=== PATIENT | male | born 1950 | race Two or more races ===

== ENCOUNTER 2019-05-02 11:56 | Emergency (ER) | payer MEDICARE, OTHER ==
[~2019-05-02] VITALS: Ht 172.7 cm; Wt 97.5 kg
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
[2019-05-02 12:12] VITALS: BP 174/76
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
[2019-05-02] MEDS ORDERED: Acetaminophen 500mg (ES) tab ORAL ONE (14:15)
[2019-05-02] MEDS ORDERED: Methocarbamol 750mg tab ORAL ONE (14:15)
[2019-05-02] MEDS ORDERED: LIDODERM700 M1 TOPIC (14:16)
[2019-05-02] MEDS ORDERED: TYLENOL EXTRA500 MG ORAL (14:16)
[2019-05-02] MEDS ORDERED: ROBAXIN-750750 MG PO (14:16)
[2019-05-02 15:10] VITALS: BP 156/90
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
--- NOTE | 2019-05-03 08:53 | Diagnostic Imaging Report ---
Indications: Headache Technique: Spiral acquisitions obtained through the brain. Angled axial and coronal 5 x 5 mm slices were reconstructed. Total dose length product 1344 mGycm. CTDI vol(s) 70 mGy. Dose reduction achieved using automated exposure control Comparison: None. Findings: There is right cerebellar volume loss, most likely related to encephalomalacia from prior infarct. Normal size ventricles and extra axial CSF spaces for age. No acute intracranial hemorrhage or edema, mass effect, nor midline shift. Normal urbano-white differentiation. Intact calvarium. Impression: Old right cerebellar infarct Negative for acute intracranial bleed or mass effect This agrees with the preliminary interpretation provided overnight by [facility] teleradiology service. The CT scanner at [facility] is accredited by the [employer] and the scans are performed using protocols designed to limit radiation exposure to as low as reasonably achievable to attain images of sufficient resolution adequate for diagnostic evaluation.
--- NOTE | 2019-05-03 08:58 | Diagnostic Imaging Report ---
Indication: Neck pain Technique: Spiral acquisitions obtained through the cervical spine. No IV contrast utilized. Multiplanar reconstructions were generated. Total dose length product 620 mGycm. CTDIvol(s) 18, 50 mGy. Dose reduction achieved using automated exposure control. Comparison: none Findings: Bony alignment is normal. There is mild degenerative disc narrowing at C5-6. Vertebral body heights are preserved. No acute fractures. No dislocations. No prevertebral soft tissue swelling. No significant disc bulge or protrusion, spinal stenosis, or neural foraminal stenosis. There is a questionable 9 mm nodule in the right thyroid lobe. The included extraspinal soft tissues are otherwise unremarkable. The upper aerodigestive tract is unremarkable. Impression: No acute bony trauma Minimal degenerative disc narrowing at C5-6 Questionable 9 mm right lower pole thyroid nodule. No further follow-up necessary The CT scanner at [facility] is accredited by the [employer] and the scans are performed using protocols designed to limit radiation exposure to as low as reasonably achievable to attain images of sufficient resolution adequate for diagnostic evaluation.
--- NOTE | 2019-05-03 11:55 | Diagnostic Imaging Report ---
Indication: Pain Technique: 3 views of the lumbar spine Comparison: None Findings: Body habitus somewhat limits examination. Vertebral body heights are preserved. The disc spaces are preserved. There are degenerative proliferative changes at L4-5. No acute fractures. No dislocations. Impression: No acute bony trauma
--- NOTE | 2019-05-03 11:56 | Diagnostic Imaging Report ---
Indication: Shoulder pain Technique: 3 views of the left shoulder Comparison: none Findings: No acute fractures. No dislocations. The joint spaces are preserved Impression: Negative
== END 2019-05-02 15:10 | disposition home or self-care (01) ==
LOC: EDBD 11:56 → EMR 12:46
DX: E04.1 Nontoxic single thyroid nodule (principal); V43.52XA Car driver injured in collision with other type car in traffic accident, initial encounter; Y92.410 Unspecified street and highway as the place of occurrence of the external cause; M54.5 Low back pain; M54.2 Cervicalgia; M25.512 Pain in left shoulder
CPT/HCPCS: 70450; 72020; 72125; 99284